=== PATIENT | male | born 1985 | race Caucasian/White ===

== ENCOUNTER 2022-03-26 10:28 | Emergency (ER) | payer SELFPAY ==
--- OUTSIDE RECORDS SUMMARY | 2022-03-26 10:31 | XMS REPORT | Continuity of Care Document ---
:1985 Author Organization [facility] Address [address] [place] [address] Care Team Providers Name Role Phone Lab, Fam Pob I Attending Clinician Unavailable Gaurav [employer] Attending Clinician GAURAV Attending Clinician Unavailable Doctor Unassigned, Name Attending Clinician Unavailable Payers Payer Name Policy Type Policy Number Effective Date Expiration Date S ource Problems This patient has no known problems. Allergies, Adverse Reactions, Alerts Allergy Allergy Status Severity Reaction(s) Onset Inactive Treating Comm ents Source Name Type Date Date Clinician NO KNOWN Drug Active Univers ALLERGIE Class [facility] Social History Social Habit Start Date Stop Date Quantity Comments [facility] to SARS-CoV-2 Not sure [facility] [place] [facility] Smoking Status Start Date Stop Date Source Unknown if ever smoked Universit y [facility] Medications This patient has no known medications. Procedures This patient has no known procedures. Encounters Start End Encounter Admission Attending Care Care Encounter Source Date/Time Date/Time Type Type Clinicians Facility Department ID 2020-06-23 2020-06-23 Laboratory Lab, Adc Fam Pob I [facility] [id number] Univers 14:09:26 14:29:26 Only Baldo Bradley [id number] katherine [facility] [id number] Moises as Campos [id number] Oh dical [address] 2020-06-23 2020-06-23 Outpatient R GAURAV [facility] [id number] Univers 14:20:00 14:20:00 BALDO murphy [facility] 2020-06-23 2020-06-23 Letter Doctor BUTCHER [id number] Univers 00:00:00 00:00:00 (Out) UnaDANIELLE santoro [id number] ity [facility] [place] [facility] [id number] [facility] [address] Results This patient has no known results.
--- NOTE | 2022-03-26 12:05 | RAD REPORT ---
EXAM DESCRIPTION: Jennifer Single View03/26/2022 11:31 am CLINICAL HISTORY: Cough COMPARISON: none FINDINGS: The lungs appear clear of acute infiltrate. The heart is normal size IMPRESSION: No acute abnormalities displayed
--- NOTE | 2022-03-26 13:11 | ER ---
Nurse's Notes [facility] Name: Dayne Gaytan Age: 37 yrs Sex: Male : 1985 Arrival Date: 03/26/2022 Time: 10:29 Bed DIS3 Private MD: Dipika Cruz C Diagnosis: Cough Presentation: 03/26 10:39 Chief complaint: Patient states: he was sent by his provider to rule out possible ap3 pneumonia. Patient states his symptoms began about a week ago after cutting his lawn. Patient reports having a productive cough. He states Nancy prescribed him an antibiotic yesterday at his visit, but wasn't sure if the patient has pneumonia or bronchitis. Coronavirus screen: At this time, the client does not indicate any symptoms associated with coronavirus-19. Ebola Screen: No symptoms or risks identified at this time. Initial Sepsis Screen: Does the patient meet any 2 criteria? No. Patient's initial sepsis screen is negative. Does the patient have a suspected source of infection? No. Patient's initial sepsis screen is negative. Risk Assessment: Do you want to hurt yourself or someone else? Patient reports no desire to harm self or others. Onset of symptoms was March 20, 2022. 10:39 Method Of Arrival: Ambulatory ap3 10:39 Acuity: KENDELL 4 ap3 Triage Assessment: 10:44 General: Appears in no apparent distress. Behavior is calm, cooperative. Pain: Denies ap3 pain. Neuro: Level of Consciousness is awake, alert, obeys commands, Oriented to person, place, time, Gait is steady, Speech is normal. Cardiovascular: Patient's skin is warm and dry. Respiratory: Airway is patent Respiratory effort is even, unlabored, Respiratory pattern is regular, symmetrical. 10:45 Respiratory: Breath sounds are clear bilaterally. ap3 Historical: - Allergies: 10:41 No Known Allergies; ap3 - Home Meds: 10:41 citalopram oral for nightmares [Active]; Amoxicillin-Pot Clavulanate Oral [Active]; ap3 - PMHx: 10:41 nightmares; ap3 - Immunization history:: Client reports receiving the Alexis \T\ Alexis single-dose vaccine. - Social history:: Smoking status: Reported history of juuling and/or vaping. Patient uses alcohol, occasionally. Screenin:45 Abuse screen: Denies threats or abuse. Nutritional screening: No deficits noted. ap3 Tuberculosis screening: No symptoms or risk factors identified. Fall Risk None identified. Assessment: 14:10 General: Appears in no apparent distress. comfortable, Behavior is calm, cooperative. ss Neuro: Level of Consciousness is awake, alert, obeys commands, Oriented to person, place, time, situation. Cardiovascular: Pulses are palpable in right radial artery and left radial artery. Respiratory: Airway is patent Respiratory effort is even, unlabored, Respiratory pattern is regular, symmetrical. GI: No signs and/or symptoms were reported involving the gastrointestinal system. Derm: Skin is intact, is healthy with good turgor, Skin is dry, Skin is pink, warm \T\ dry. normal. Musculoskeletal: Range of motion: intact in all extremities. Vital Signs: 10:39 BP 127 / 68; Pulse 73; Resp 17; Temp 98.3; Pulse Ox 99% ; Weight 66.22 kg; Height 5 ft. ap3 8 in. (172.72 cm); 10:39 Body Mass Index 22.20 (66.22 kg, 172.72 cm) ap3 ED Course: 10:29 Patient arrived in ED. as 10:29 Dipika Cruz MD is Private Physician. as 10:38 Umer Kincaid DO is Attending Physician. ms3 10:41 Triage completed. ap3 10:45 Arm band placed on left wrist. ap3 11:29 CXR XRAY In Process Unspecified. EDMS 13:10 Dipika Cruz MD is Referral Physician. ms3 14:10 Patient has correct armband on for positive identification. ss 14:10 No provider procedures requiring assistance completed. Patient did not have IV access ss during this emergency room visit. Administered Medications: No medications were administered Medication: 10:45 VIS not applicable for this client. ap3 Outcome: 13:11 Discharge ordered by MD. ms3 14:10 Discharged to home ambulatory. ss 14:10 Condition: good 14:10 Discharge instructions given to patient, family, Instructed on discharge instructions, follow up and referral plans. medication usage, Demonstrated understanding of instructions, follow-up care, medications, Prescriptions given X 1. 14:13 Patient left the ED. ss Signatures: Dispatcher [employer] EDKS Dea Mendoza Shelby, RN RN Rosalia Goldsmith RN RN ap3 Umer Kincaid DO DO ms3 Corrections: (The following items were deleted from the chart) : Allergies: No Known Allergies; ap3 ap3 : Home Meds: citalopram oral; ap3 ap3 : Home Meds: Amoxicillin-Pot Clavulanate Oral; ap3 ap3 10: PMHx: Depressive disorder; ap3 ap3 10: PMHx: None; ap3 ap3
--- NOTE | 2022-03-26 13:11 | EDPHYS ---
Physician Documentation [facility] Name: Dayne Gaytan Age: 37 yrs Sex: Male : 1985 Arrival Date: 03/26/2022 Time: 10:29 Bed DIS3 Private MD: Dipika Baum C ED Physician Umer Kincaid HPI: 03/26 11:27 This 37 yrs old Male presents to ER via Ambulatory with complaints of sent by baum r/o ms3 pneumonia. 11:27 The patient or guardian reports cough, that is intermittent, with productive sputum. ms3 Onset: The symptoms/episode began/occurred 1 week(s) ago. Severity of symptoms: At their worst the symptoms were moderate, in the emergency department the symptoms are unchanged. Modifying factors: The symptoms are alleviated by nothing, the symptoms are aggravated by nothing. Associated signs and symptoms: Pertinent negatives: chest pain, fever, nausea, vomiting. Historical: - Allergies: 10:41 No Known Allergies; ap3 - Home Meds: 10:41 citalopram oral for nightmares [Active]; Amoxicillin-Pot Clavulanate Oral [Active]; ap3 - PMHx: 10:41 nightmares; ap3 - Immunization history:: Client reports receiving the Alexis \T\ Alexis single-dose vaccine. - Social history:: Smoking status: Reported history of juuling and/or vaping. Patient uses alcohol, occasionally. ROS: 11:27 Constitutional: Negative for fever, and chills. Neck: Negative for injury, pain, and ms3 swelling, Cardiovascular: Negative for chest pain, and palpitations. Abdomen/GI: Negative for abdominal pain, nausea, vomiting, diarrhea, and constipation, Skin: Negative for injury, rash, and discoloration. 11:27 Respiratory: Positive for cough. 11:27 All other systems are negative. Exam: 11:27 Constitutional: This is a well developed, well nourished patient who is awake, alert, ms3 and in no acute distress. Eyes: Pupils equal round and reactive to light, extra-ocular motions intact. Lids and lashes normal. Conjunctiva and sclera are non-icteric and not injected. Periorbital areas with no swelling, redness, or edema. ENT: Nares patent. No nasal discharge, no septal abnormalities noted. Tympanic membranes are normal and external auditory canals are clear. Oropharynx with no redness, swelling, or masses, exudates, or evidence of obstruction, uvula midline. Mucous membranes moist. Neck: Trachea midline, no cervical lymphadenopathy. Supple, full range of motion without nuchal rigidity, or vertebral point tenderness. No Meningismus. Chest/axilla: Normal chest wall appearance and motion. Nontender with no deformity. Cardiovascular: Regular rate and rhythm with a normal S1 and S2. No gallops, murmurs, or rubs. Normal PMI, no JVD. No pulse deficits. Respiratory: Lungs have equal breath sounds bilaterally, clear to auscultation and percussion. No rales, rhonchi or wheezes noted. No increased work of breathing, no retractions or nasal flaring. Abdomen/GI: Soft, non-tender, with normal bowel sounds. No distension or tympany. No guarding or rebound. No evidence of tenderness throughout. Skin: Warm, dry with normal turgor. Normal color with no rashes, no lesions, and no evidence of cellulitis. Vital Signs: 10:39 BP 127 / 68; Pulse 73; Resp 17; Temp 98.3; Pulse Ox 99% ; Weight 66.22 kg; Height 5 ft. ap3 8 in. (172.72 cm); 10:39 Body Mass Index 22.20 (66.22 kg, 172.72 cm) ap3 MDM: 11:27 Differential Diagnosis: Bronchitis Upper Respiratory Infection Viral Syndrome Pneumonia.ms3 13:08 Data reviewed: vital signs, nurses notes, radiologic studies, plain films. Data ms3 interpreted: Pulse oximetry: on room air is 99 %. Interpretation: normal. 13:08 Counseling: I had a detailed discussion with the patient and/or guardian regarding: the ms3 historical points, exam findings, and any diagnostic results supporting the discharge/admit diagnosis, radiology results, the need for outpatient follow up, to return to the emergency department if symptoms worsen or persist or if there are any questions or concerns that arise at home. ED course: Discussed xray, physical exam findings with patient. Patient to follow-up with primary care physician in 2-3 days. Patient understands and agrees with plan. All questions were answered. Return precautions discussed include worsening symptoms, or any other concerns. On reevaluation patient is alert and oriented x4, in no apparent distress, nontoxic-appearing, speaking full sentences, ambulatory in emergency department. . 13:11 Patient medically screened. ms3 03/26 11:26 Order name: CXR XRAY; Complete Time: 13:06 ms3 Administered Medications: No medications were administered Disposition Summary: 03/26/22 13:11 Discharge Ordered Location: Home ms3 Condition: Stable ms3 Diagnosis - Cough ms3 Followup: ms3 - With: Dipika Baum MD - When: 2 - 3 days - Reason: Re-evaluation by your physician Discharge Instructions: - Discharge Summary Sheet ms3 - Cough, Adult ms3 Forms: - Medication Reconciliation Form ms3 - Thank You Letter ms3 - Antibiotic Education ms3 - Prescription Opioid Use ms3 Prescriptions: - Tessalon Perles 100 mg Oral Capsule - take 1 capsule by ORAL route every 8 hours As needed; 15 capsule; Refills: 0, ms3 Product Selection Permitted Signatures: Dispatcher [employer] Rosalia Brandt RN RN ap3 Umer Kincaid DO DO ms3 Corrections: (The following items were deleted from the chart) 10:44 10:41 Allergies: No Known Allergies; ap3 ap3 10:44 10:41 Home Meds: citalopram oral; ap3 ap3 10:44 10:41 Home Meds: Amoxicillin-Pot Clavulanate Oral; ap3 ap3 10:44 10:41 PMHx: Depressive disorder; ap3 ap3 10:44 10:41 PMHx: None; ap3 ap3
[2022-03-26 15:02] VITALS: BP 127/68; TEMP 98.3; O2SAT 99
== END 2022-03-26 14:13 | disposition home or self-care (01) ==
LOC: ER 10:28
DX: R05.9 Cough, unspecified (principal)
CPT/HCPCS: 71045; 99283